=== PATIENT | male | born 1980 | race Caucasian/White ===

== ENCOUNTER 2024-11-16 17:30 | Emergency (ER) | payer MEDICAID ==
[~2024-11-16] VITALS: Ht 188 cm; Wt 100.0 kg
[2024-11-16 18:02] VITALS: TEMP 97.8
[2024-11-16 18:53] LABS: MEAN PLATELET VOLUME 8.2 FL (7.4-10.4); RED CELL DISTRIBUTION WIDTH 13.3 % (11.5-14.5)
[2024-11-16] MEDS ORDERED: VALA100031 PO (19:03)
[2024-11-16 19:04] LABS: CREATININE 0.75 MG/DL (0.60-1.10); TOTAL CARBON DIOXIDE 22.9 MMOL/L (24-32); eCRCL 148 ML/MIN; eGFR > 90 ML/MIN
--- NOTE | 2024-11-16 19:04 | Physician Documentation ---
History of Present Illness ~ Chief Complaint: Numbness Stated Complaint: L SIDE FACIAL NUMBESS Time Seen by MD: 18:38 Source: patient, family Mode of Arrival: POV Exam Limitations: no limitations HPI 43-year-old male with facial numbness since this morning. Patient denies any head trauma or significant medical history no difficulty with speech, weakness arms or legs. Patient does have history of hepatitis-C with treatment and has been negative since. Medication Reconciliation Allergies: Coded Allergies: No Known Allergies (Unverified , 11/16/24) Scheduled Valacyclovir HCl (Valacyclovir), 1 TAB PO Q8H Past Medical History Past Medical History: No Pertinent History, Hepatitis C Past Surgical History: noncontributory Alcohol Use: None Lives with: Family Lives In: Home Occupation: employed Review of Systems All Other Systems at this time: Reviewed and Negative Neurological: Reports: see HPI Physical Exam Vital Signs: RN Vital Signs have been reviewed: Yes, Temperature: 97.8, Source: Temporal, Heart Rate: 72, Respiratory Rate: 16, BP: 143/90, Pulse Oximetry: 98, Weight: 100.000 Oxygen Flow Rate: 0 General Appearance General: Alert, no apparent distress. HEENT: PERRL, EOMI, no injection, moist mucous membranes. Neck: Full range of motion. Respiratory: Lungs clear, no respiratory distress. Chest: No accessory muscle use. Cardiovascular: Regular rate and rhythm, no murmurs. Extremities: Normal range of motion, no deformity. Neurologic: Oriented x4. Equal candle cutter strength bilaterally good push pulls. Facial asymmetry unable to for a row on left side difficulty closing eye fully, good [id number] coordination normal Psychiatric: Normal mood and affect. Skin: Normal color, warm and dry. No edema, no ecchymosis. Orientation / Memory / CN Exam: oriented x3 Motor / Sensory: no motor deficit, no sensory deficit, no pronator drift Coordination / Gait: normal finger to nose, normal gait Progress Results/Orders Results/Orders Vital Signs 11/16/24 11/16/24 11/16/24 18:02 18:37 18:39 Temp 97.8 Pulse 73 72 Resp 14 18 16 B/P (MAP) 135/80 143/90 (107) Pulse Ox 98 98 O2 Flow Rate 0 Laboratory Tests Test 11/16/24 18:46 White Blood Count 5.2 Red Blood Count 5.03 Hemoglobin 15.5 Hematocrit 44.0 Mean Corpuscular Volume 87.4 Mean Corpuscular Hemoglobin 30.8 Mean Corpuscular Hemoglobin Concent 35.3 Red Cell Distribution Width 13.3 Platelet Count 226 Mean Platelet Volume 8.2 Neutrophils (%) (Auto) 58.6 Lymphocytes (%) (Auto) 32.8 Monocytes (%) (Auto) 7.7 Eosinophils (%) (Auto) 0.5 Basophils (%) (Auto) 0.4 Neutrophils # (Auto) 3.0 Lymphocytes # (Auto) 1.7 Monocytes # (Auto) 0.4 Eosinophils # (Auto) 0.0 Basophils # (Auto) 0.0 CBC Comment Sodium Level 141 Potassium Level 3.9 Chloride Level 108 H Carbon Dioxide Level 22.9 L Anion Gap 10 Blood Urea Nitrogen 15 Creatinine 0.75 Estimated GFR/1.73 m2 > 90 BUN/Creatinine Ratio 20.0 Glucose Level 104 Calcium Level 9.3 Albumin 4.1 Chemistry Comments Medical Decision Making Findings Patient has no neurologic deficits except left facial numbness and droop unable to for a brown equal candle cutter strength bilaterally. Labs ordered prior to assessment but we will wait to evaluate. bells palsy differential diagnosis at this time. Labs and vital signs reassuring patient will be discharged with medications to follow up Differential Dx:Considerations: Include: Silva's Palsey, CVA, DKA, Drug overdose, Electrolyte imbalance, Encephalopathy, Mass lesion Departure Time of Disposition: 19:22 Disposition: 01 HOME / SELF CARE / HOMELESS Impression: Primary Impression: Facial paralysis/[place] palsy Condition: Stable Discharge Instructions: Silva's Palsy, Adult Additional Instructions: Antivirals as prescribed and follow up with primary care urgent care in 1 week feel free to return to the ER sooner as needed. Use tape or eye patch to keep I closed fully to reduce the occurrence of corneal abrasion. Departure Forms: Excuse form Work or School Excused From: Work Excuse beginning now through the following date: Nov 18, 2024 Referrals: NO PRIMARY CARE PROVIDER (PCP) Prescriptions Valacyclovir HCl (Valacyclovir) 1,000 Mg Tablet 1 TAB PO Q8H for 7 Days, #21 TAB 0 Refills Prov: BONITA FOSTER NP 11/16/24 Education Educated: Patient, Family Educated regarding: diagnosis, treatment, need for follow up Signature Scribe Signature: No scribe Attestation: The note accurately reflects work and decisions made by me.Bonita CHOPRA 11/16/24 19:04 BONITA FOSTER NP Nov 16, 2024 19:04
[2024-11-16 19:30] VITALS: BP 140/88; PULSE 70; RESP 18; O2SAT 99
--- NOTE | 2024-11-18 08:05 | ELECTROCARDIOGRAPH REPORT ---
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
== END 2024-11-16 19:31 | disposition home or self-care (01) ==
LOC: ER 17:31
DX: G51.0 Bell's palsy (principal); Z79.899 Other long term (current) drug therapy; Z86.19 Personal history of other infectious and parasitic diseases
CPT/HCPCS: 36415; 80048; 84145; 85025; 85651; 93005; 99283; 99284